=== PATIENT | female | born 1955 | race Caucasian/White ===

== ENCOUNTER 2016-12-28 08:04 | Emergency (ER) | payer OTHER ==
[~2016-12-28] VITALS: Wt 60.0 kg
[2016-12-28] MEDS ORDERED: KETOROLAC 30 MG INJ IM STA (08:42)
--- NOTE | 2016-12-28 09:39 | RADRPT ---
PROCEDURE: Left knee series. CLINICAL INDICATION: Left knee pain TECHNIQUE: Three views of the left knee. COMPARISON: None available FINDINGS: There is normal mineralization and alignment of the left knee. No acute fracture or dislocation is seen. There is mild medial joint space narrowing and subtle osteophyte formation. There is subtle lateral and patellofemoral osteophytes.. No definite joint effusion is seen. The soft tissues are w ithin normal limits. IMPRESSION: 1. Mild degenerative change of the left knee. RPTAT: KK .Chris Trinidad MD, MD Date Time Electronically viewed and signed by .Chris Trinidad MD, MD on 12/28/2016 09:39 .B/
[2016-12-28] MEDS ORDERED: HYDR-906 PO (10:15)
[2016-12-28] MEDS ORDERED: IBUP400T22 PO (10:16)
[2016-12-28 10:26] VITALS: RESP 18
--- NOTE | 2016-12-28 11:03 | ERD ---
ER Documentation Chief Complaint Date/Time DATE: 12/28/16 TIME: 11:00 Chief Complaint L BUTTOCK PAIN RADIATING TO LEFT LEG FOR 4 DAYS. NO TRAUMA HPI This is a 61-year-old female presents to the ER with left buttock pain that radiates down her left leg for the last 4 days. Patient states that she also has left knee pain and she states she has left knee swelling. Patient denies any trauma. Patient states that standing up is better, laying down makes it worse. Patient is normally very active. Patient has been trying BenGay however it has not worked. She also tried tramadol which did not work either. Patient went to [facility] 2 days ago and was discharged home with tramadol. Patient denies any fevers or chills. She denies any numbness or tingling to light. In is constant and severe. Patient denies lower back pain. She denies urinary bowel incontinence or she denies any urinary frequency or dysuria. ROS 12 point review of systems was done, all negative except per HPI. Medications Home Meds Active Scripts Ibuprofen* (Ibuprofen*) 400 Mg Tablet, 400 MG PO Q6H Y for PAIN for 7 Days, TAB Prov:ZACHERY,LINDSAY C 12/28/16 Hydrocodone/Acetaminophen (Conway 5-325 Tablet) 1 Each Tablet, 1 TAB PO Q6H Y for PAIN, #20 TAB Prov:ZACHERY,LINDSAY C 12/28/16 Allergies Allergies: Coded Allergies: No Known Allergy (Unverified , 12/28/16) PMhx/Soc History of Surgery: Yes (Cholecystectomy) Anesthesia Reaction: No Hx Neurological Disorder: Yes (Neuropathy) Hx Respiratory Disorders: No Hx Cardiac Disorders: Yes (HTN) Hx Psychiatric Problems: No Hx Miscellaneous Medical Probl: Yes (DM2) Hx Alcohol Use: No Hx Substance Use: No Hx Tobacco Use: No Smoking Status: Never smoker Physical Exam Vitals Vital Signs Date Time Temp Pulse Resp B/P Pulse Ox O2 Delivery O2 Flow Rate FiO2 12/28/16 10:26 18 98 Room Air 12/28/16 08:12 98.1 84 21 160/79 96 Physical Exam GENERAL: The patient is well developed and appropriate for usual state of health , in no apparent distress. CHEST: Clear to auscultation bilaterally. There are no rales, wheezes or rhonchi. HEART: Regular rate and rhythm. No murmurs, clicks, rubs or gallops. ABDOMEN: Soft, nontender and nondistended. Good bowel sounds. No rebound or guarding. No gross peritonitis. No gross organomegaly or masses. No Blood sign or McBurney point tenderness. No pulsatile abdominal mass. BACK: No midline or flank tenderness. Negative leg raise test. No step- offs. No crepitus. TTP at the sciatic nerve. Hip has normal ROM , no pain. Left Knee: there is slight swelling to the lateral aspect of the knee. painful flexion of the knee. no tibia/fibula pain. n/v intact EXTREMITIES: Equal pulses bilaterally. There is no peripheral clubbing, cyanosis or edema. No focal swelling or erythema. Full range of motion. Grossly neurovascularly intact. NEURO: Alert and oriented Results 24 hrs Current Medications Medications (Trade) Dose Ordered Sig/Scott Route PRN Reason Start Time Stop Time Status Last Admin Dose Admin Ketorolac Tromethamine (Toradol) 30 mg ONCE STAT IM 12/28/16 08:42 12/28/16 08:43 DC 12/28/16 08:49 Procedures/MDM Differential Diagnosis includes but is not limited to back strain, vertebral fracture, epidural abscess, cauda equina, herniated disc, AAA rupture, kidney stones, UTI, pyelonephritis. At this time patient does appear to have sciatica as she has pain over her sciatic nerve and it radiates down her left leg. Patient was also complaining of left knee pain. She does have some degenerative changes of her left knee. Patient did not have any redness of her knee. She is afebrile and well-appearing. Patient had painful but normal range of motion of her knee. I doubt septic joint, septic arthritis, osteomyelitis. Patient was not complaining of back pain at this time. I doubt cauda equina or epidural abscess. She is neurovascularly intact. Patient will be sent home with ibuprofen and with Conway. She is to follow-up with her primary care doctor within 1-2 days or return to ER sooner symptoms worsen. My medical decision making [place] with the patient she understands and agrees with plan. Departure Diagnosis: Primary Impression: Knee pain Additional Impression: Sciatica Condition: Stable Patient Instructions: Understanding Sciatica Additional Instructions: Call your primary care doctor TOMORROW for an appointment during the next 1-2 days.See the doctor sooner or return here if your condition worsens before your appointment time. LINDSAY BINGHAM Dec 28, 2016 11:03
== END 2016-12-28 10:31 | disposition home or self-care (01) ==
LOC: FTE 08:04
DX: M25.562 Pain in left knee (principal); M54.30 Sciatica, unspecified side; I10 Essential (primary) hypertension; E11.9 Type 2 diabetes mellitus without complications
CPT/HCPCS: 73562; 96372; J1885; Z7502